=== PATIENT | female | born 1985 | race Caucasian/White ===

== ENCOUNTER 2016-11-11 13:23 | Outpatient (CLI) | payer OTHER ==
[2014-07-06 11:55] VITALS: BP 139/82
== END 2016-11-11 13:25 ==
LOC: LAB 13:23
PROVIDERS: ATTEND Family Medicine
DX: E11.9 Type 2 diabetes mellitus without complications (principal)
CPT/HCPCS: 36415; 83036

== ENCOUNTER 2017-12-07 09:31 | Outpatient (CLI) | payer OTHER ==
[2014-07-06 11:55] VITALS: BP 139/82
== END 2017-12-07 10:00 ==
LOC: LAB 09:31
PROVIDERS: ATTEND Family Medicine
DX: E04.1 Nontoxic single thyroid nodule (principal); E11.9 Type 2 diabetes mellitus without complications
CPT/HCPCS: 36415; 83036; 84443